=== PATIENT | male | born 1980 | race Caucasian/White ===

== ENCOUNTER 2021-04-06 08:13 | Emergency (ER) | payer MEDICARE, MEDICAID, SELFPAY ==
[2021-03-30 11:10] VITALS: BMI 31.2
[2021-04-06 08:15] VITALS: BP 127/95; PULSE 72; RESP 16; TEMP 36.3; O2SAT 97; BMI 30.2
[2021-04-06 08:28] VITALS: O2SAT 98
--- NOTE | 2021-04-06 08:34 | RAD_ITS ---
STUDY: X-RAY CHEST REASON FOR EXAM: Male, 40 years old. Cough TECHNIQUE: 1 week history of cough. Possible aspiration. COMPARISON: Comparison is made with prior study dated 03/30/2021. FINDINGS: EKG electrodes are seen. The lungs are clear and expanded. There is no demonstrated pleural abnormality. Normal size heart. Normal mediastinum and wilfred. Normal visualized pulmonary arteries. Normal visualized aortic arch and descending thoracic aorta. Normal visualized thoracic spine. Normal visualized ribs, clavicles, and shoulders. Hiatal hernia. RAD/Chest 1 View (Portable) IMPRESSION: The lungs are clear. Hiatal hernia. Electronically Signed: Bob Morocho MD at 9:26 EDT , Service support ,
--- NOTE | 2021-04-06 08:37 | EX.ED.DYSGE1 ---
HPI History of Present Illness Chief Complaint: Cough Informant: parent Onset/Context/Timing Onset: Weeks (1) Context: Gradual Onset Timing: Continuous Quality: Cough Location: Chest Worsened by: Nothing Relieved by: Nothing Narrative Narrative: Patient presents with cough that has been getting worse over the past week. Patient is nonverbal and is a poor historian. Mother states the patient was seen in urgent care last week and was given a prescription for amoxicillin and Zithromax for possible aspiration pneumonia. Mother states patient has been taking the antibiotics as prescribed but has not gotten any better. Mother states patient has been coughing up some yellow sputum. Mother also states patient has been vomiting up some stomach contents. Mother is concerned over possible aspiration. Mother denies any fevers or chills. [facility] Medical History Hemorrhoids History of seizures Incontinence Limb weakness TBI (traumatic brain injury) Home Medications carbamazepine 400 mg PO BID 02/10/14 [History Last Taken Unknown] loratadine [Claritin] 10 mg PO DAILY 02/10/14 [History Last Taken Unknown] pediatric multivit 22-D3-vit K [Multivitamins Chewable Tablet] 1 ea PO DAILY 02/10/14 [History Last Taken Unknown] albuterol sulfate [Ventolin Hfa (SP)] 1 puff INHALATION Q4H PRN PRN 09/13/17 [History Last Taken Unknown] calcium carbonate 300 mg PO DAILY 09/13/17 [History Last Taken Unknown] cholecalciferol (vitamin D3) [Vitamin D] 1,000 unit PO DAILY 09/13/17 [History Last Taken Unknown] magnesium oxide 250 mg PO DAILY 09/13/17 [History Last Taken Unknown] melatonin 10 mg PO DAILY 09/13/17 [History Last Taken Unknown] omeprazole 40 mg PO DAILY 09/13/17 [History Last Taken Unknown] phenobarbital 32.4 mg PO TUTHSA 09/13/17 [History Last Taken Unknown] amoxicillin 875 mg-potassium clavulanate 125 mg tablet 1 tab PO Q12H 10 Days #20 tab 03/30/21 [Rx Last Taken Unknown] azithromycin 250 mg tablet See Rx Instructions PO .COMPLEX #6 tab 03/30/21 [Rx Last Taken Unknown] psyllium husk 0.52 gram capsule 0.52 g PO DAILY 03/30/21 [History Last Taken Unknown] dextromethorphan HBr 30 mg PO QHS PRN PRN #10 cap 04/06/21 [Rx Last Taken Unknown] Allergy/AdvReac Type Severity Reaction Status Date / Time animal dander Allergy unknown Verified 04/06/21 08:17 grass pollen Allergy unknown Verified 04/06/21 08:17 lavender (Lavandula Allergy unknown Verified 04/06/21 08:17 angustifolia) wood smoke Allergy unknown Uncoded 04/06/21 08:17 Family History (Updated 03/30/21 @ 11:22 by Lori Winchester) Grandfather Colon cancer Grandmother Hypertension Diabetes Surgical History History of surgical procedure Social History Smoking Status: Never smoker alcohol intake: never ROS ROS ED Constitutional Constitutional ED: Denies chills or fever(s) Eyes Eyes: Denies blurry vision or change in vision ENT ENT ED: Reports sore throat; Denies rhinorrhea Cardiovascular Cardiovascular: Denies chest pain or palpitations Respiratory/Chest Respiratory/Chest: Reports cough; Denies dyspnea Gastrointestinal Gastrointestinal: Reports nausea and vomiting Genitourinary Genitourinary ED: Denies dysuria or hematuria Integumentary Denies abscess or rash Neurologic Neurologic: Denies headache(s) Allergic/Immunologic Allergic/Immunologic ED: Denies mouth swelling or urticaria EXAM Physical Exam Const Vital Signs: 04/06/21 08:15 04/06/21 08:28 04/06/21 08:45 Temperature 97.4 F L Temperature Source Temporal Pulse Rate 72 80 Respiratory Rate 16 18 Respiratory Effort Normal Non-Labored Respiratory Depth Normal Respiratory Pattern Normal Blood Pressure 127/95 H Blood Pressure Mean 105 Pulse Ox 97 Oxygen Delivery Method Room Air Room Air 04/06/21 11:21 Temperature Temperature Source Pulse Rate 77 Respiratory Rate 14 Respiratory Effort Respiratory Depth Respiratory Pattern Blood Pressure 125/86 H Blood Pressure Mean Pulse Ox 97 Oxygen Delivery Method Positive well nourished and well developed General Appearance ED: well developed HEENT Reports moist mucous membranes Neck supple and no JVD Resp normal respiratory effort Auscultation: diminished lung sounds diffuse Cardio regular rate and regular rhythm GI normal to inspection, nondistended, normoactive bowel sounds and non-tender Palpation: soft Neuro CN's II-XII intact bilaterally and no sensory deficits noted Sensorium / Orientation: alert MDM MDM MDM Narrative Medical decision making narrative: Patient was given a DuoNeb aerosol here. Portable 1 view chest x-ray was obtained. On my interpretation, lung gardner are clear. There is normal cardiac silhouette. Bony thorax is normal. There is a hiatal hernia noted. There is no acute process noted. Radiologist also interpreted the x-ray and agrees. COVID-19 rapid antigen was obtained and was negative. Patient was feeling better on reevaluation. Mother was advised of the findings. Mother was advised that this may still be some irritation from previous aspiration pneumonia. Mother was instructed to follow-up with the patient's primary care physician in 5 to 7 days. Patient was given a prescription for dextromethorphan to take at night to help with the cough. Mother understood and was agreeable with the plan. All questions were answered. Radiography Chest X-Ray - ED: 1 View, Read by ED Physician, Read by Radiologist and Normal Diagnostic Testing: Radiology Impression Chest X-Ray 04/06/21 08:34 IMPRESSION: The lungs are clear. Hiatal hernia. Electronically Signed: Bob Morocho MD at 9:26 EDT , Service support , Discharge Plan Triage Chief Complaint: Cough ED Provider: Rehan Barron Dx/Rx/DC Orders Clinical Impression: Cough Instructions: ED Bronchitis, No Antibiotic (Adult) Prescriptions: New dextromethorphan HBr 15 mg capsule 30 mg PO QHS PRN PRN (Reason: cough) Qty: 10 RF: 0 No Action psyllium husk [Metamucil] 0.52 gram capsule 0.52 g PO DAILY RF: 0 azithromycin 250 mg tablet See Rx Instructions PO .COMPLEX Qty: 6 RF: 0 amoxicillin-pot clavulanate [Augmentin] 875-125 mg tablet 1 tab PO Q12H 10 Days Qty: 20 RF: 0 carbamazepine 200 MG tablet extended release 12 hr 400 mg PO BID RF: 0 loratadine [Allergy Relief (loratadine)] 10 MG tablet 10 mg PO DAILY RF: 0 Chewable Multivit-A,B,D,E,K,Zn 1 EACH tablet,chewable 1 ea PO DAILY RF: 0 phenobarbital 16.2 MG tablet 32.4 mg PO TUTHSA RF: 0 omeprazole 40 MG capsule,delayed release(DR/EC) 40 mg PO DAILY RF: 0 calcium carbonate 600 MG tablet 300 mg PO DAILY RF: 0 albuterol sulfate [Ventolin HFA] 1 INHALER inhaler 1 puff inhalation Q4H PRN PRN (Reason: Wheezing) RF: 0 magnesium oxide 250 MG tablet 250 mg PO DAILY RF: 0 cholecalciferol (vitamin D3) [Vitamin D3] 1,000 UNIT tablet 1,000 unit PO DAILY RF: 0 melatonin 10 MG tablet 10 mg PO DAILY RF: 0 Primary Care Provider: Lino Miller Referrals: Lino Miller MD [Primary Care Provider] - 3-5 Days Disposition Disposition: Home, Self Care Discharge Date/Time: 04/06/21 11:24
[2021-04-06 08:45] VITALS: PULSE 80; RESP 18
[2021-04-06] MEDS: Ipratropium/Albuterol Sulfate 3 ML AMPUL.NEB INHALATION (08:45)
[2021-04-06 11:21] VITALS: BP 125/86; PULSE 77; RESP 14; O2SAT 97
== END 2021-04-06 11:24 | disposition home or self-care (01) ==
PROVIDERS: Emergency Provider Emergency Medicine; PCP Family Medicine
DX: R05 Cough (principal); G40.909 Epilepsy, unspecified, not intractable, without status epilepticus; Z79.899 Other long term (current) drug therapy; Z87.01 Personal history of pneumonia (recurrent); Z87.820 Personal history of traumatic brain injury
CPT/HCPCS: 71045; 87426; 94640; 99283

== ENCOUNTER 2021-05-28 08:11 | Emergency (ER) | payer MEDICARE, MEDICAID, SELFPAY ==
[2021-05-28 08:13] VITALS: BP 133/87; PULSE 98; RESP 26; TEMP 36.6; O2SAT 97; BMI 26.6
[2021-05-28 08:22] VITALS: BP 133/87; PULSE 97; RESP 26; TEMP 36.6; O2SAT 95
--- NOTE | 2021-05-28 08:29 | EDS_ITS ---
HPI History of Present Illness Chief Complaint: Fever Informant: parent Onset/Context/Timing Onset: Yesterday Current Severity: Mild Maximum Severity: Moderate Narrative Narrative: Patient presents via EMS with mother secondary to fever. Patient has history of TBI and seizures; he is nonverbal at baseline. Mother states that she was called to pick him up early from workshop yesterday because he was not able to urinate. They went to urgent care and urine sample was reported negative for infection. Last evening he did not want to eat or drink much. She noted that he had a fever of 100.7 when she put him to bed last night. This morning he had a temperature of 102 rectally. She states he did saturate his bed this morning. He has had mild runny nose and cough which mother has attributed to allergies. She did note that the patient's home nurse is currently in quarantine because her has Covid. The patient was not vaccinated against Covid. [facility] Medical History (Updated 05/28/21 @ 10:[address] Kim Delgadillo MD) Cerebral palsy GERD (gastroesophageal reflux disease) Hemorrhoids History of seizures Incontinence Limb weakness TBI (traumatic brain injury) Home Medications carbamazepine 400 mg PO BID 02/10/14 [History Last Taken Unknown] loratadine [Claritin] 10 mg PO DAILY 02/10/14 [History Last Taken Unknown] pediatric multivit 22-D3-vit K [Multivitamins Chewable Tablet] 1 ea PO DAILY 02/10/14 [History Last Taken Unknown] albuterol sulfate [Ventolin Hfa (SP)] 1 puff INHALATION Q4H PRN PRN 09/13/17 [History Last Taken Unknown] calcium carbonate 300 mg PO DAILY 09/13/17 [History Last Taken Unknown] cholecalciferol (vitamin D3) [Vitamin D] 1,000 unit PO DAILY 09/13/17 [History Last Taken Unknown] magnesium oxide 250 mg PO DAILY 09/13/17 [History Last Taken Unknown] melatonin 10 mg PO QHS 09/13/17 [History Last Taken Unknown] omeprazole 40 mg PO DAILY 09/13/17 [History Last Taken Unknown] phenobarbital 32.4 mg PO TUTHSA 09/13/17 [History Last Taken Unknown] psyllium husk 0.52 gram capsule 0.52 g PO DAILY 03/30/21 [History Last Taken Unknown] dextromethorphan HBr 30 mg PO QHS PRN PRN #10 cap 04/06/21 [Rx Last Taken Unknown] cephalexin 500 mg PO Q6 #40 cap 05/28/21 [Rx Last Taken Unknown] clindamycin HCl 300 mg PO 4X/DAY #80 cap 05/28/21 [Rx Last Taken Unknown] dexamethasone [Decadron] 6 mg PO DAILY #9 tab 05/28/21 [Rx Last Taken Unknown] phenobarbital 16.2 mg PO SUMOWEFR 05/28/21 [History Last Taken Unknown] Allergy/AdvReac Type Severity Reaction Status Date / Time animal dander Allergy unknown Verified 05/28/21 08:12 grass pollen Allergy unknown Verified 05/28/21 08:12 lavender (Lavandula Allergy unknown Verified 05/28/21 08:12 angustifolia) wood smoke Allergy unknown Uncoded 05/28/21 08:12 Family History Grandfather Colon cancer Grandmother Hypertension Diabetes Surgical History History of surgical procedure Social History Smoking Status: Never smoker alcohol intake: never ROS ROS ED ROS Narrative Patient nonverbal at baseline. Per mother patient with fever, mild cough. No vomiting or diarrhea. Review of Systems ROS Unobtainable: due to mental condition EXAM Physical Exam Const Vital Signs: 05/28/21 08:13 05/28/21 08:17 05/28/21 08:22 Temperature 97.8 F 97.8 F Temperature Source Temporal Temporal Pulse Rate 98 97 Respiratory Rate 26 H 26 H Respiratory Effort Normal Non-Labored Respiratory Pattern Tachypnea Blood Pressure 133/87 H 133/87 H Blood Pressure Mean 102 102 Pulse Ox 97 95 Oxygen Delivery Method Room Air Room Air Positive well nourished and well developed General Appearance ED: well developed Eyes EOMs intact bilaterally Neck supple Chest Wall inspection of chest normal and palpation of chest normal Resp normal respiratory effort and clear to auscultation bilaterally Cardio regular rate and regular rhythm GI non-tender Auscultation: hypoactive bowel sounds Palpation: soft Extremity normal to inspection Neuro Sensorium / Orientation: alert Skin no rashes or lesions noted MDM MDM MDM Narrative Medical decision making narrative: Patient is observed on case monitor. Lab work, urinalysis, Covid test, cultures obtained. Portable chest x-ray ordered. Lab Data Attestation: I reviewed the patient's lab results. Labs: Laboratory Results - last 24 hr 05/28/21 05/28/21 05/28/21 08:46 08:46 09:45 WBC 5.5 RBC 4.50 L Hgb 13.5 Hct 40.3 MCV 89.6 MCH 30.0 MCHC 33.5 RDW Std Deviation 40.0 RDW Coeff of Nicol 12.2 Plt Count 135 L MPV 10.8 Immature Gran % (Auto) 0.400 Neut % (Auto) 79.0 H Lymph % (Auto) 10.7 L [place] % (Auto) 9.5 Eos % (Auto) 0.4 Baso % (Auto) 0.0 Absolute Neuts (auto) 4.3 Absolute Lymphs (auto) 0.59 L Nucleated RBC % 0 Differential Comment COMMENT Sodium 139 Potassium 3.8 Chloride 106 Carbon Dioxide 27.0 Anion Gap 6 BUN 14 Creatinine 0.63 L Estim Creat Clear Calc 137.84 Est GFR (MDRD) Af Amer 180 Est GFR (MDRD) Non-Af 149 BUN/Creatinine Ratio 22.3 H Glucose 100 Calcium 9.2 Urine Color Yellow Urine Clarity Clear Urine pH 6.5 Ur Specific [place] 1.010 Urine Protein Negative Urine Glucose (UA) Normal Urine Ketones 5 H Urine Occult Blood Negative Urine Nitrite Negative Urine Bilirubin Negative Urine Urobilinogen Normal Ur Leukocyte Esterase Negative Urine RBC 0 SEEN Urine WBC 0 SEEN Ur Squamous Epith Cells 0 SEEN Urine Bacteria 0 SEEN Urine Mucus 0 SEEN Radiography Chest X-Ray - ED: 1 View, Read by ED Physician and Right Infiltrate Diagnostic Testing: Radiology Impression Chest X-Ray 05/28/21 09:05 IMPRESSION: Patchy right lower lobe infiltrate with blunting of the right cardiac phrenic angle. Electronically Signed: Bob Morocho MD at 9:43 EDT , Service support , Treatment and Re-Evaluation Comments:: Test results reviewed with mother at bedside. Chest x-ray does reveal a right lower lobe infiltrate per my interpretation as well as radiologist. Covid test is positive. Blood work and urinalysis otherwise unremarkable. Patient's O2 sat is 96% on room air. He will be treated with dexamethasone. Because the patient has frequent aspiration pneumonia and the infiltrate noted on his x-ray appears to be more consistent with this as opposed to the typical Covid pneumonia pattern he will be treated with antibiotics as well. Mother does have pulse ox at home and will check his oxygen levels frequently. Discharge Plan Triage Chief Complaint: Fever ED Provider: Kim Delgadillo Dx/Rx/DC Orders Clinical Impression: Aspiration pneumonia, COVID-19 Instructions: Coronavirus Disease 2019 (COVID-19): Overview, Coronavirus Disease 2019 (COVID-19): Caring for Yourself or Others, ED Pneumonia (Adult) Prescriptions: New dexamethasone [Decadron] 6 mg tablet 6 mg PO DAILY Qty: 9 RF: 0 clindamycin HCl 150 mg capsule 300 mg PO 4X/DAY Qty: 80 RF: 0 cephalexin 500 mg capsule 500 mg PO Q6 Qty: 40 RF: 0 No Action psyllium husk [Metamucil] 0.52 gram capsule 0.52 g PO DAILY RF: 0 carbamazepine 200 MG tablet extended release 12 hr 400 mg PO BID RF: 0 loratadine [Allergy Relief (loratadine)] 10 MG tablet 10 mg PO DAILY RF: 0 Chewable Multivit-A,B,D,E,K,Zn 1 EACH tablet,chewable 1 ea PO DAILY RF: 0 phenobarbital 16.2 MG tablet 32.4 mg PO TUTHSA RF: 0 omeprazole 40 MG capsule,delayed release(DR/EC) 40 mg PO DAILY RF: 0 calcium carbonate 600 MG tablet 300 mg PO DAILY RF: 0 albuterol sulfate [Ventolin HFA] 1 INHALER inhaler 1 puff inhalation Q4H PRN PRN (Reason: Wheezing) RF: 0 magnesium oxide 250 MG tablet 250 mg PO DAILY RF: 0 cholecalciferol (vitamin D3) [Vitamin D3] 1,000 UNIT tablet 1,000 unit PO DAILY RF: 0 melatonin 10 MG tablet 10 mg PO QHS RF: 0 dextromethorphan HBr 15 mg capsule 30 mg PO QHS PRN PRN (Reason: cough) Qty: 10 RF: 0 phenobarbital 32.4 mg tablet 16.2 mg PO SUMOWEFR RF: 0 Primary Care Provider: Lino Miller Referrals: Lino Miller MD [Primary Care Provider] - 1-2 Weeks Disposition Disposition: Home, Self Care
--- NOTE | 2021-05-28 09:05 | RAD_ITS ---
STUDY: X-RAY CHEST REASON FOR EXAM: Male, 41 years old. Fever TECHNIQUE: Single AP portable view of the chest. COMPARISON: Comparison is made with prior study dated 04/06/2021. FINDINGS: EKG electrodes are seen. Patchy infiltrate at the right lung base with blunting of the left costophrenic angle. Normal size heart. Normal mediastinum and wilfred. Normal visualized pulmonary arteries. Normal visualized aortic arch and descending thoracic aorta. Normal visualized thoracic spine. Normal visualized ribs, clavicles, and shoulders. Hiatal hernia. RAD/Chest 1 View (Portable) IMPRESSION: Patchy right lower lobe infiltrate with blunting of the right cardiac phrenic angle. Electronically Signed: Bob Morocho MD at 9:43 EDT , Service support ,
[2021-05-28 09:07] LABS: Absolute Lymphocyte Count 0.59 X10^3/uL (0.83-4.51); Absolute Neutrophil Count 4.3 X10^3/uL (2.0-7.7); Eosinophil# 0.02 X10^3/uL; Eosinophils% 0.4 % (0-5); Hematocrit 40.3 % (40-54); Hemoglobin 13.5 g/dL (13.0-16.5); Lymphocyte # 0.59 X10^3/ul (0.83-4.51); Lymphocyte % 10.7 % (19-41); Mean Corp Hgb Conc 33.5 g/dL (32-36); Mean Corpuscular Volume 89.6 fL (80-94); Mean Platelet Vol. 10.8 fl (6.2-12.0); Monocyte# 0.52 X10^3/uL; Monocyte% 9.5 % (0-10); NRBC Flagged by Analyzer 0 % (0-5); Neutrophil # 4.34 X10^3/uL (2.7-7.7); POSITIVE DIFFERENTIAL YES; Platelet Count 135 K/mm3 (150-450); RBC Distribution Width CV 12.2 % (11.6-14.6); White Blood Count 5.5 K/mm3 (4.4-11.0)
[2021-05-28 09:08] LABS: Differential Indicated SCAN CRITERIA MET
[2021-05-28 09:18] LABS: Anion Gap 6 (5-15); BUN 14 mg/dL (7-18); BUN/Creat Ratio 22.3 RATIO (10-20); Calcium,Total 9.2 mg/dL (8.5-10.1); Chloride 106 mmol/L (98-107); Creatinine, Serum 0.63 mg/dL (0.70-1.30); EST Glomerular Filtration Rate 149 mL/min (>60); Est Glom Filt Rate - Afr Amer 180 mL/min (>60); Estimated Creatinine Clearance 137.84 ml/min; Glucose 100 mg/dL (74-106); Potassium 3.8 mmol/L (3.5-5.1); Sodium Level 139 mmol/L (136-145)
[2021-05-28 09:51] LABS: Bacteria 0 SEEN /hpf (None Seen); Mucous, Urine 0 SEEN /hpf (<or=2+); Red Blood Cells-Urine 0 SEEN /hpf (0-5); Squamous Epithelial Cells - UA 0 SEEN /hpf (0-5); White Blood Cells 0 SEEN /hpf (0-5)
[2021-05-28 09:56] LABS: Color, Urine Yellow (Yellow); Glucose, Dipstick Normal (Normal); Ketone-Dipstick 5 mg/dl (Negative); Leukocyte Esterase-Dipstick Negative /ul (Negative); Nitrite-Dipstick Negative (Negative); Occult Blood-Urine Negative /ul (Negative); Protein-Dipstick Negative (Negative); Urine Bilirubin Dipstick Negative (Negative); Urine Clarity Clear (Clear); Urine Urobilinogen Normal (Normal); Urine pH 6.5 (5.0 - 8.0)
[2021-05-28 10:24] VITALS: BP 118/76; PULSE 88; RESP 23; TEMP 37.5; O2SAT 94
[2021-05-28] MEDS: dexAMETHasone 4 MG Tablet 6 MG PO (10:37)
[2021-05-28] MEDS: Cephalexin 250 MG Capsule 500 MG PO (10:37)
[2021-05-28] MEDS: Clindamycin HCl 150 MG Capsule 300 MG PO (10:37)
[2021-05-28 10:45] VITALS: BP 114/78; PULSE 92; RESP 24; TEMP 38; O2SAT 95
[2021-05-28 11:02] VITALS: BP 119/79; PULSE 88; RESP 23; O2SAT 95
== END 2021-05-28 11:25 | disposition home or self-care (01) ==
PROVIDERS: Emergency Provider Emergency Medicine; PCP Family Medicine
DX: U07.1 COVID-19 (principal); J69.0 Pneumonitis due to inhalation of food and vomit; G80.9 Cerebral palsy, unspecified; K21.9 Gastro-esophageal reflux disease without esophagitis; Z79.899 Other long term (current) drug therapy; Z87.820 Personal history of traumatic brain injury
CPT/HCPCS: 36415; 71045; 80048; 81001; 85025; 87040; 87086; 87426; 99285; A4216

== ENCOUNTER 2021-06-03 07:37 | Emergency (ER) | payer MEDICARE, MEDICAID, SELFPAY ==
[2021-06-03 07:40] VITALS: BP 112/75; PULSE 104; RESP 16; TEMP 37.2; O2SAT 94; BMI 31.8
--- NOTE | 2021-06-03 08:17 | EDS_ITS ---
HPI History of Present Illness Chief Complaint: Fever Informant: parent Limited: other Onset/Context/Timing Onset: Days Context: Gradual Onset Timing: Continuous Current Severity: Mild Maximum Severity: Mild Narrative Narrative: 41-year-old male coming by his mom. Patient has a history of cereb ral palsy, seizure disorder mild asthma. He tested positive for Covid on 917. Both his parents are Covid positive. Patient has not been vaccinated. Basically has had fevers at home. No vomiting or diarrhea. Cough with clear sputum. Prior similar symptoms: Yes Recent Illness/Hospitalization: No PFSH PFS Medical History Cerebral palsy GERD (gastroesophageal reflux disease) Hemorrhoids History of seizures Incontinence Limb weakness TBI (traumatic brain injury) Home Medications carbamazepine 400 mg PO BID 02/10/14 [History Last Taken Unknown] loratadine [Claritin] 10 mg PO DAILY 02/10/14 [History Last Taken Unknown] pediatric multivit 22-D3-vit K [Multivitamins Chewable Tablet] 1 ea PO DAILY 02/10/14 [History Last Taken Unknown] albuterol sulfate [Ventolin Hfa (SP)] 1 puff INHALATION Q4H PRN PRN 09/13/17 [History Last Taken Unknown] calcium carbonate 300 mg PO DAILY 09/13/17 [History Last Taken Unknown] cholecalciferol (vitamin D3) [Vitamin D] 1,000 unit PO DAILY 09/13/17 [History Last Taken Unknown] magnesium oxide 250 mg PO DAILY 09/13/17 [History Last Taken Unknown] melatonin 10 mg PO QHS 09/13/17 [History Last Taken Unknown] omeprazole 40 mg PO DAILY 09/13/17 [History Last Taken Unknown] phenobarbital 32.4 mg PO TUTHSA 09/13/17 [History Last Taken Unknown] psyllium husk 0.52 gram capsule 0.52 g PO DAILY 03/30/21 [History Last Taken Unknown] dextromethorphan HBr 30 mg PO QHS PRN PRN #10 cap 04/06/21 [Rx Last Taken Unknown] cephalexin 500 mg PO Q6 #40 cap 05/28/21 [Rx Last Taken Unknown] clindamycin HCl 300 mg PO 4X/DAY #80 cap 05/28/21 [Rx Last Taken Unknown] dexamethasone [Decadron] 6 mg PO DAILY #9 tab 05/28/21 [Rx Last Taken Unknown] phenobarbital 16.2 mg PO SUMOWEFR 05/28/21 [History Last Taken Unknown] Allergy/AdvReac Type Severity Reaction Status Date / Time animal dander Allergy unknown Verified 06/03/21 07:43 grass pollen Allergy unknown Verified 06/03/21 07:43 lavender (Lavandula Allergy unknown Verified 06/03/21 07:43 angustifolia) wood smoke Allergy unknown Uncoded 06/03/21 07:43 Family History Grandfather Colon cancer Grandmother Hypertension Diabetes Surgical History History of surgical procedure Social History Smoking Status: Never smoker alcohol intake: never ROS ROS ED ROS Narrative Cough. Fever. Review of Systems ROS Unobtainable: Denies due to encephalopathy Constitutional Constitutional ED: Reports fever(s) Eyes Eyes: Denies change in vision ENT ENT ED: Denies ear pain or sore throat Cardiovascular Cardiovascular: Denies chest pain Respiratory/Chest Respiratory/Chest: Reports cough and sputum Gastrointestinal Gastrointestinal: Denies abdominal pain, diarrhea, nausea or vomiting Genitourinary Genitourinary ED: Denies dysuria Musculoskeletal Musculoskeletal: Denies myalgias Integumentary Denies rash Neurologic Neurologic: Denies headache(s) Psychiatric Psychiatric: Denies depression Endocrine Endocrinology: Denies polyuria Allergic/Immunologic Allergic/Immunologic ED: Denies urticaria EXAM Physical Exam Narrative Exam Narrative: Middle-age male no acute distress. Vital signs stable. Pulse ox 94% on room air no signs hypoxia. His initial temperature is 98.9. Nurse to get 100.7 axillary. HEENT exam mild dry mucous memories. Neck nontender no JVD no lymphadenopathy. Lungs clear to auscultation bilaterally. Heart regular rhythm rate about 100 no murmur. Abdomen soft nontender normal bowel sounds no peritoneal signs. Patient moving all 4 extremities. He does have braces on both ankles. Calves are nontender without edema or cords. Neurologically is awake. Is alert. He is moving all 4 extremities. Const Vital Signs: 06/03/21 07:40 06/03/21 08:14 06/03/21 08:57 Temperature 98.9 F 100.4 F H Temperature Source Axillary Axillary Pulse Rate 104 H 100 Respiratory Rate 16 22 H Respiratory Effort Normal Non-Labored Respiratory Pattern Normal Blood Pressure 112/75 112/84 H Blood Pressure Mean 87 93 Pulse Ox 94 96 Oxygen Delivery Method Room Air Room Air Positive well nourished and well developed; Negative for obese, cachectic, contractures or unkempt General Appearance ED: well developed and NAD; Negative for unkempt, cachectic, contractures, cyanotic or diaphoretic Nutritional Appearance: Negative for cachectic or obese HEENT Reports dry mucous membranes Negative for trauma or tenderness Mouth ED: Yes dry mucous membranes Mouth: dry mucous membranes Eyes PERRL and EOMs intact bilaterally Neck supple and no JVD General: Negative for tenderness Chest Wall inspection of chest normal and palpation of chest normal Resp normal respiratory effort and clear to auscultation bilaterally Cardio regular rate, regular rhythm, S1 normal heart sound, S2 normal heart sound and no murmurs Rate: tachycardic GI normal to inspection, nondistended, normoactive bowel sounds, non-tender and non-distended Palpation: soft Back/Spine no CVA tenderness General Back: Negative for CVA tenderness Extremity normal to inspection Extremity Narrative: Braces but lower extremities. General Extremety ED: Negative for edema or tenderness General Extremity: Negative for edema Neuro Neuro Narrative: Patient not speaking. Sensorium / Orientation: alert Psych mental status grossly normal Appearance: Negative for unkempt Skin no rashes or lesions noted and no wounds MDM MDM MDM Narrative Medical decision making narrative: Middle-age male with Covid unvaccinated. Will be treated with IV fluids. Labs and chest x-ray pending. Repeat exam patient doing well at 10:30 AM. Blood pressures running around 95/5 0 and that is his baseline. He does not look septic or toxic. He and his mom a card with him being discharged home. He is currently on antibiotics clindamycin and she believes Keflex. Lab Data Attestation: I reviewed the patient's lab results. Lab results narrative: CBC shows a white count of 4. Hemoglobin 13.5. Platelets of 144,000. Electrolytes show a gap of 7 creatinine 0.6. Lactic acid 0.7. Liver enzymes are elevated AST 378, ALT elevated 709. Alkaline phosphatase 198. Total bilirubin is normal. Labs: Laboratory Results - last 24 hr 09/23/21 09/23/21 09/23/21 08:36 08:36 08:36 WBC 4.0 L RBC 4.62 Hgb 13.5 Hct 40.7 MCV 88.1 MCH 29.2 MCHC 33.2 RDW Std Deviation 39.7 RDW Coeff of Nicol 12.2 Plt Count 144 L MPV 10.8 Immature Gran % (Auto) 0.500 Neut % (Auto) 81.7 H Lymph % (Auto) 9.8 L [place] % (Auto) 8.0 Eos % (Auto) 0.0 Baso % (Auto) 0.0 Absolute Neuts (auto) 3.3 Absolute Lymphs (auto) 0.39 L Nucleated RBC % 0 [address] Review January foll Sodium 137 Potassium 3.8 Chloride 104 Carbon Dioxide 26.0 Anion Gap 7 BUN 16 Creatinine 0.63 L Estim Creat Clear Calc 108.02 Est GFR (MDRD) Af Amer 179 Est GFR (MDRD) Non-Af 148 BUN/Creatinine Ratio 25.3 H Glucose 116 H Lactic Acid 0.7 Calcium 9.2 Total Bilirubin 0.50 AST 378 H ALT 709 H Alkaline Phosphatase 198 H Total Protein 7.5 Albumin 3.1 L Globulin 4.4 H Albumin/Globulin Ratio 0.7 L Radiography Chest X-Ray - ED: 1 View, Read by ED Physician, Heart, Lungs, Mediastinum, Bony Structures and Right Infiltrate Diagnostic Testing: Chest x-ray portable 1 view shows a right lower lobe infiltrate as seen on the prior chest x-ray 6 days ago. Discharge Plan Triage Chief Complaint: Fever ED Provider: Dejuan Hall Dx/Rx/DC Orders Clinical Impression: Aspiration pneumonia, COVID-19 Instructions: Symptoms of COVID-19 Infection Prescriptions: No Action psyllium husk [Metamucil] 0.52 gram capsule 0.52 g PO DAILY RF: 0 carbamazepine 200 MG tablet extended release 12 hr 400 mg PO BID RF: 0 loratadine [Allergy Relief (loratadine)] 10 MG tablet 10 mg PO DAILY RF: 0 Chewable Multivit-A,B,D,E,K,Zn 1 EACH tablet,chewable 1 ea PO DAILY RF: 0 phenobarbital 16.2 MG tablet 32.4 mg PO TUTHSA RF: 0 omeprazole 40 MG capsule,delayed release(DR/EC) 40 mg PO DAILY RF: 0 calcium carbonate 600 MG tablet 300 mg PO DAILY RF: 0 albuterol sulfate [Ventolin HFA] 1 INHALER inhaler 1 puff inhalation Q4H PRN PRN (Reason: Wheezing) RF: 0 magnesium oxide 250 MG tablet 250 mg PO DAILY RF: 0 cholecalciferol (vitamin D3) [Vitamin D3] 1,000 UNIT tablet 1,000 unit PO DAILY RF: 0 melatonin 10 MG tablet 10 mg PO QHS RF: 0 dextromethorphan HBr 15 mg capsule 30 mg PO QHS PRN PRN (Reason: cough) Qty: 10 RF: 0 phenobarbital 32.4 mg tablet 16.2 mg PO SUMOWEFR RF: 0 dexamethasone [Decadron] 6 mg tablet 6 mg PO DAILY Qty: 9 RF: 0 clindamycin HCl 150 mg capsule 300 mg PO 4X/DAY Qty: 80 RF: 0 cephalexin 500 mg capsule 500 mg PO Q6 Qty: 40 RF: 0 Primary Care Provider: Lino Miller Referrals: Lino Miller MD [Primary Care Provider] - 3-5 Days Activity Restrictions/Additional Instructions: Plenty of fluids and rest. Alternate Tylenol and Motrin for fever. Finish his antibiotics. Follow-up with his doctor early next week to ensure he is improving. Return emergency department if worse. Disposition Disposition: Home, Self Care
[2021-06-03] MEDS: 0.9% Normal Saline 1,000 ML 999 ML IV (08:42)
[2021-06-03] MEDS: Acetaminophen 500 MG Tablet 1000 MG PO (08:43)
[2021-06-03 08:57] VITALS: BP 112/84; PULSE 100; RESP 22; TEMP 38; O2SAT 96
[2021-06-03 08:57] LABS: Absolute Lymphocyte Count 0.39 X10^3/uL (0.83-4.51); Absolute Neutrophil Count 3.3 X10^3/uL (2.0-7.7); Hematocrit 40.7 % (40-54); Hemoglobin 13.5 g/dL (13.0-16.5); Lymphocyte # 0.39 X10^3/ul (0.83-4.51); Lymphocyte % 9.8 % (19-41); Mean Corp Hgb Conc 33.2 g/dL (32-36); Mean Corpuscular Hgb 29.2 pg (27.0-32.0); Mean Corpuscular Volume 88.1 fL (80-94); Mean Platelet Vol. 10.8 fl (6.2-12.0); Monocyte# 0.32 X10^3/uL; NRBC Flagged by Analyzer 0 % (0-5); Neutrophil # 3.27 X10^3/uL (2.7-7.7); Neutrophil % 81.7 % (47-70); POSITIVE DIFFERENTIAL YES; Platelet Count 144 K/mm3 (150-450); RBC Distribution Width CV 12.2 % (11.6-14.6); RBC Distribution Width SD 39.7 fl (35.1-43.9); Red Blood Count 4.62 M/mm3 (4.6-6.2)
[2021-06-03 09:02] LABS: Differential Indicated SCAN CRITERIA MET
[2021-06-03 09:13] LABS: ALB/GLOB Ratio 0.7 RATIO (0.9-2.4); AST(SGOT) 378 U/L (15-37); Alanine Aminotransfer ALT/SGPT 709 U/L (16-61); Albumin, Serum 3.1 g/dL (3.2-5.0); Alkaline Phosphatase 198 U/L (45-117); Anion Gap 7 (5-15); BUN 16 mg/dL (7-18); BUN/Creat Ratio 25.3 RATIO (10-20); Calcium,Total 9.2 mg/dL (8.5-10.1); Chloride 104 mmol/L (98-107); Creatinine, Serum 0.63 mg/dL (0.70-1.30); EST Glomerular Filtration Rate 148 mL/min (>60); Est Glom Filt Rate - Afr Amer 179 mL/min (>60); Estimated Creatinine Clearance 108.02 ml/min; Globulin 4.4 g/dL (2.2-4.2); Glucose 116 mg/dL (74-106); Potassium 3.8 mmol/L (3.5-5.1); Protein, Total 7.5 g/dL (6.4-8.2); Sodium Level 137 mmol/L (136-145)
[2021-06-03 09:20] LABS: Lactic Acid 0.7 mmol/L (0.4-1.9)
--- NOTE | 2021-06-03 10:10 | RAD_ITS ---
STUDY: X-RAY CHEST REASON FOR EXAM: Male, 41 years old. covid TECHNIQUE: Single AP portable view of the chest. COMPARISON: Comparison is made with prior study 05/28/2021. FINDINGS: EKG electrodes are seen. Progressive infiltrates are seen in the right hemithorax in the preferential peripheral distribution. This is suggestive of Covid There is no demonstrated pleural abnormality. Normal size heart. Normal mediastinum and wilfred. Normal visualized pulmonary arteries. Normal visualized aortic arch and descending thoracic aorta. Normal visualized thoracic spine. Normal visualized ribs, clavicles, and shoulders. Hiatal hernia RAD/Chest 1 View (Portable) IMPRESSION: Progressive peripheral based infiltrates in the right hemithorax. Electronically Signed: Bob Morocho MD at 10:48 EDT , Service support ,
[2021-06-03 10:29] VITALS: BP 95/41; PULSE 89; RESP 12; O2SAT 94
[2021-06-03 11:27] VITALS: PULSE 88; RESP 14; TEMP 37.7; O2SAT 94
[2021-06-04 13:21] LABS: Pathologist Review Reviewed
== END 2021-06-03 11:30 | disposition home or self-care (01) ==
PROVIDERS: Emergency Provider Emergency Medicine; PCP Family Medicine
DX: U07.1 COVID-19 (principal); J69.0 Pneumonitis due to inhalation of food and vomit; G80.9 Cerebral palsy, unspecified; G40.909 Epilepsy, unspecified, not intractable, without status epilepticus; K21.9 Gastro-esophageal reflux disease without esophagitis; Z79.899 Other long term (current) drug therapy
CPT/HCPCS: 71045; 80053; 83605; 85025; 87040; 96360; 96361; 99285; J7030; A4216

== ENCOUNTER 2021-06-23 12:53 | Emergency (ER) | payer MEDICARE, MEDICAID, SELFPAY ==
[2021-06-23 12:58] VITALS: BP 132/89; PULSE 81; RESP 14; TEMP 36.6; O2SAT 95; BMI 28.4
[2021-06-23 13:03] VITALS: BP 115/92; PULSE 85; RESP 18; O2SAT 96
--- NOTE | 2021-06-23 13:05 | EKG12_ITS ---
Test Reason : CP Blood Pressure : / mmHG Vent. Rate : 084 BPM Atrial Rate : 084 BPM P-R Int : 148 ms QRS Dur : 084 ms QT Int : 344 ms P-R-T Axes : 028 039 022 degrees QTc Int : 406 ms Normal sinus rhythm Normal ECG Confirmed by SHALA CAMARILLO, PAUL ([id number]), material expeditor TATE RICH ([id number]) on 06/29/2021 6:30:46 AM Referred By: Confirmed By:PAUL LAST MD
--- NOTE | 2021-06-23 13:20 | EDS_ITS ---
HPI History of Present Illness Chief Complaint: Chest Pain Informant: patient and parent Onset/Context/Timing Onset: Today Activity at onset: gradual Timing: Intermittent Quality: Positive for Pain Location: Substernal Current Severity: Gone Maximum Severity: Mild Worsened By: Nothing Relieved By: Nothing Narrative Narrative: 41-year-old male who goes to the workshop. He has a history of cerebral palsy. No history of DVT or PE. No recent travel surgery or immobilization. Patient himself is a very limited informant but family is at the bedside. Reportedly had chest pain today while at the workshop. No hemoptysis. No leg pain or swelling. Prior Similar Symptoms: No Recent Illness/Hospitalization: No CVD Risk Factors: Negative for Hypertension, Diabetes, Hypercholesterolemia, Family History 1' </=55 and Smoking PE Risk Factors: Negative for Recent Travel/Surgery, Recent Immobilization, Prior DVT or PE, Cancer and OCP + Smoking + >/=35 TAD Risk Factors: Negative for Marfan's Syndrome and Hypertension [facility] Medical History Asthma Cerebral palsy GERD (gastroesophageal reflux disease) Hemorrhoids History of seizures Incontinence Limb weakness TBI (traumatic brain injury) Home Medications carbamazepine 400 mg PO BID 02/10/14 [History Last Taken Unknown] loratadine [Claritin] 10 mg PO DAILY 02/10/14 [History Last Taken Unknown] pediatric multivit 22-D3-vit K [Multivitamins Chewable Tablet] 1 ea PO DAILY 02/10/14 [History Last Taken Unknown] albuterol sulfate [Ventolin Hfa (SP)] 1 puff INHALATION Q4H PRN PRN 09/13/17 [History Last Taken Unknown] calcium carbonate 300 mg PO DAILY 09/13/17 [History Last Taken Unknown] cholecalciferol (vitamin D3) [Vitamin D] 1,000 unit PO DAILY 09/13/17 [History Last Taken Unknown] magnesium oxide 250 mg PO DAILY 09/13/17 [History Last Taken Unknown] melatonin 10 mg PO QHS 09/13/17 [History Last Taken Unknown] omeprazole 40 mg PO DAILY 09/13/17 [History Last Taken Unknown] phenobarbital 32.4 mg PO TUTHSA 09/13/17 [History Last Taken Unknown] psyllium husk 0.52 gram capsule 0.52 g PO DAILY 03/30/21 [History Last Taken Unknown] phenobarbital 16.2 mg PO SUMOWEFR 05/28/21 [History Last Taken Unknown] Allergy/AdvReac Type Severity Reaction Status Date / Time animal dander Allergy unknown Verified 06/23/21 12:58 grass pollen Allergy unknown Verified 06/23/21 12:58 lavender (Lavandula Allergy unknown Verified 06/23/21 12:58 angustifolia) perfume Allergy PT UNABLE Verified 06/23/21 12:58 TO RESPOND-NEEDS F/U wood smoke Allergy unknown Uncoded 06/23/21 12:58 Family History Grandfather Colon cancer Grandmother Hypertension Diabetes Surgical History History of surgical procedure Social History (Reviewed 06/23/21 @ 13: by Dr. Dejuan Hall MD) Smoking Status: Never smoker alcohol intake: never ROS ROS ED ROS Narrative Chest pain. Review of Systems ROS Unobtainable: Denies due to encephalopathy Constitutional Constitutional ED: Denies fever(s) or subjective Eyes Eyes: Denies none or change in vision ENT ENT ED: Denies ear pain or sore throat Cardiovascular Cardiovascular: Reports as per HPI and chest pain; Denies palpitations or racing heartbeat Respiratory/Chest Respiratory/Chest: Denies cough or dyspnea Gastrointestinal Gastrointestinal: Denies abdominal pain, diarrhea, nausea or vomiting Genitourinary Genitourinary ED: Denies dysuria Musculoskeletal Musculoskeletal: Denies myalgias Integumentary Denies rash Neurologic Neurologic: Denies headache(s) Psychiatric Psychiatric: Denies depression Endocrine Endocrinology: Denies polyuria Hematologic/Lymphatic Hematologic/Lymphatic: Denies easy bruising Allergic/Immunologic Allergic/Immunologic ED: Denies urticaria EXAM Physical Exam Narrative Exam Narrative: Middle-age male no acute distress. Currently nonverbal. Vital signs stable afebrile. Pulse ox 95% on room air no signs hypoxia. HEENT exam unremarkable. Neck nontender no JVD. Lungs clear to auscultation bilaterally. Heart regular rhythm rate about 80. Chest wall completely nontender. No ecchymosis or bruising. No subcu air crepitus. Abdomen soft nontender normal bowel sounds no peritoneal signs. Extremities his calves are nontender both lower extremities. He has braces on his lower extremities. Neurologically he is awake his eyes are open. Currently is not speaking or answering my quest ions. He will follow limited commands. He has weakness in both upper and lower extremities which is chronic. Const Vital Signs: 06/23/21 12:58 06/23/21 13:03 06/23/21 13:27 Temperature 97.9 F Temperature Source Axillary Pulse Rate 81 85 Respiratory Rate 14 18 Blood Pressure 132/89 H 115/92 H Blood Pressure Mean 103 99 Pulse Ox 95 96 92 Oxygen Delivery Method Room Air Room Air Room Air Positive well nourished and well developed; Negative for obese, cachectic, contractures or unkempt General Appearance ED: well developed and NAD; Negative for unkempt, cachectic, contractures or pallor Nutritional Appearance: Negative for cachectic or obese HEENT Reports moist mucous membranes normocephalic and atraumatic; Negative for trauma or tenderness Eyes PERRL and EOMs intact bilaterally Neck no lymphadenopathy and supple Chest Wall inspection of chest normal and palpation of chest normal Chest: Negative for tenderness Resp normal respiratory effort and clear to auscultation bilaterally Effort and Inspection: respiratory distress Auscultation: Negative for rales, rhonchi or wheezes Cardio regular rate, regular rhythm, S1 normal heart sound, S2 normal heart sound and no murmurs GI normal to inspection, nondistended, normoactive bowel sounds, soft to palpation, non-tender, non-distended and no masses Auscultation: Negative for hyperactive bowel sounds Back/Spine no CVA tenderness Extremity normal to inspection Extremity Narrative: Bilateral chronic weakness. Bilateral lower extremity paresis. General Extremety ED: Negative for edema or tenderness General Extremity: Negative for edema Neuro Neuro Narrative: Eyes are open. Follows limited commands. Currently not speaking. Sensorium / Orientation: awake and alert Psych mental status grossly normal Appearance: Negative for unkempt Skin no rashes or lesions noted and no wounds General Skin Exam: Negative for jaundice or pallor Heart Score History: Slightly/Non-Suspicious ECG: Normal Age: </= 45 years Risk Factors: No Risk Factors Troponin: </= Normal Limit Score: 0 MDM MDM MDM Narrative Medical decision making narrative: White male several palsy with reported chest pain not answering questions or speaking at this time. Exam benign. Will un dergo cardiac work-up. He has no DVT or PE history. He has no leg pain or swelling. And he has no risk factors. Repeat exam patient is doing well and 2:50 PM. Exam is benign. He is symptom-free. Abdomen is nontender. Discussed with his mom she knew that he had a large radial hernia. Entire time he takes omeprazole. They are comfortable with him being discharged home. His heart score is 0. Lab Data Attestation: I reviewed the patient's lab results. Lab results narrative: CBC shows an elevated white count of 15.1. Hemoglobin normal at 15. Platelets normal. Electrolytes unremarkable gap of 8. Creatinine normal. Glucose 136. High-sensitivity troponin . Labs: Laboratory Results - last 24 hr 06/23/21 06/23/21 13:25 13:25 WBC 15.1 H RBC 5.13 Hgb 15.3 Hct 45.6 MCV 88.9 MCH 29.8 MCHC 33.6 RDW Std Deviation 42.2 RDW Coeff of Nicol 12.9 Plt Count 293 MPV 11.3 Immature Gran % (Auto) 0.300 Neut % (Auto) 81.8 H Lymph % (Auto) 9.7 L [place] % (Auto) 7.5 Eos % (Auto) 0.4 Baso % (Auto) 0.3 Absolute Neuts (auto) 12.3 H Absolute Lymphs (auto) 1.46 Nucleated RBC % 0 Sodium 139 Potassium 3.5 Chloride 105 Carbon Dioxide 26.0 Anion Gap 8 BUN 23 H Creatinine 0.86 Estim Creat Clear Calc 90.05 Est GFR (MDRD) Af Amer 126 Est GFR (MDRD) Non-Af 104 BUN/Creatinine Ratio 26.9 H Glucose 136 H Calcium 10.1 Troponin I High Sens 6 Radiography Chest X-Ray - ED: 1 View, Read by ED Physician, Heart, Lungs, Mediastinum, Bony Structures and No Acute Disease Diagnostic Testing: Clinical Impression(s) from Imaging Studies Chest X-Ray 06/23/21 13:32 IMPRESSION: Mild degree of increased linear markings at the lung bases slightly worse on the left side. Blunt tip of the left costophrenic angle. Large hiatal hernia. Electronically Signed: Bob Morocho MD at 14:02 EDT , Service support , Single view portable chest x-ray interpreted by myself shows no acute abnormality does have a very large hiatal hernia. Rhythm Strip Rhythm Strip: Sinus Rhythm Rate: 84 Ectopy: None EKG Initial EKG: Attestation: I personally reviewed and interpreted this EKG as follows: Interpretation: Sinus Rhythm and No Acute Injury Pattern Comments: Normal sinus rhythm rate 84 no acute signs of KS or ischemia. Prior EKG tracings: not available for review Discharge Plan Triage Chief Complaint: Chest Pain ED Provider: Dejuan Hall Dx/Rx/DC Orders Clinical Impression: Chest pain Instructions: ED Chest Pain, Uncertain Cause Prescriptions: No Action psyllium husk [Metamucil] 0.52 gram capsule 0.52 g PO DAILY RF: 0 carbamazepine 200 MG tablet extended release 12 hr 400 mg PO BID RF: 0 loratadine [Allergy Relief (loratadine)] 10 MG tablet 10 mg PO DAILY RF: 0 Chewable Multivit-A,B,D,E,K,Zn 1 EACH tablet,chewable 1 ea PO DAILY RF: 0 phenobarbital 16.2 MG tablet 32.4 mg PO TUTHSA RF: 0 omeprazole 40 MG capsule,delayed release(DR/EC) 40 mg PO DAILY RF: 0 calcium carbonate 600 MG tablet 300 mg PO DAILY RF: 0 albuterol sulfate [Ventolin HFA] 1 INHALER inhaler 1 puff inhalation Q4H PRN PRN (Reason: Wheezing) RF: 0 magnesium oxide 250 MG tablet 250 mg PO DAILY RF: 0 cholecalciferol (vitamin D3) [Vitamin D3] 1,000 UNIT tablet 1,000 unit PO DAILY RF: 0 melatonin 10 MG tablet 10 mg PO QHS RF: 0 phenobarbital 32.4 mg tablet 16.2 mg PO SUMOWEFR RF: 0 Primary Care Provider: Lino Miller Referrals: Lino Miller MD [Primary Care Provider] - 3-5 Days if not improving Activity Restrictions/Additional Instructions: Work-up was negative. His EKG and heart enzymes are normal. This may be from reflux or his hiatal hernia. Uses omeprazole at home. Return if feeling worse. Otherwise follow-up with his primary care physician. Disposition Disposition: Home, Self Care
[2021-06-23] MEDS: Aspirin 81 MG TAB.CHEW 324 MG PO (13:26)
[2021-06-23 13:27] VITALS: O2SAT 92
[2021-06-23 13:31] LABS: Absolute Lymphocyte Count 1.46 X10^3/uL (0.83-4.51); Absolute Neutrophil Count 12.3 X10^3/uL (2.0-7.7); Basophil# 0.04 X10^3/uL; Basophil% 0.3 % (0-1); Eosinophil# 0.06 X10^3/uL; Eosinophils% 0.4 % (0-5); Hematocrit 45.6 % (40-54); Hemoglobin 15.3 g/dL (13.0-16.5); Lymphocyte # 1.46 X10^3/ul (0.83-4.51); Lymphocyte % 9.7 % (19-41); Mean Corp Hgb Conc 33.6 g/dL (32-36); Mean Corpuscular Hgb 29.8 pg (27.0-32.0); Mean Corpuscular Volume 88.9 fL (80-94); Mean Platelet Vol. 11.3 fl (6.2-12.0); Monocyte# 1.13 X10^3/uL; Monocyte% 7.5 % (0-10); NRBC Flagged by Analyzer 0 % (0-5); Neutrophil # 12.34 X10^3/uL (2.7-7.7); Neutrophil % 81.8 % (47-70); Platelet Count 293 K/mm3 (150-450); RBC Distribution Width CV 12.9 % (11.6-14.6); RBC Distribution Width SD 42.2 fl (35.1-43.9); Red Blood Count 5.13 M/mm3 (4.6-6.2); White Blood Count 15.1 K/mm3 (4.4-11.0)
--- NOTE | 2021-06-23 13:32 | RAD_ITS ---
STUDY: X-RAY CHEST REASON FOR EXAM: Male, 41 years old. Chest pain TECHNIQUE: Single AP portable view of the chest. COMPARISON: Comparison is made with prior examination dated 06/03/2021. FINDINGS: EKG electrodes are seen. Mild degree of increased markings at the lung bases slightly worse on the left side. These have improved as compared to prior study. Blunting of the left costophrenic angle. Normal size heart. Normal mediastinum and wilfred. Normal visualized pulmonary arteries. Normal visualized aortic arch and descending thoracic aorta. Normal visualized thoracic spine. Normal visualized ribs, clavicles, and shoulders. Large hiatal hernia. RAD/Chest 1 View (Portable) IMPRESSION: Mild degree of increased linear markings at the lung bases slightly worse on the left side. Blunt tip of the left costophrenic angle. Large hiatal hernia. Electronically Signed: Bob Morocho MD at 14:02 EDT , Service support ,
[2021-06-23 13:47] LABS: Anion Gap 8 (5-15); BUN 23 mg/dL (7-18); BUN/Creat Ratio 26.9 RATIO (10-20); Calcium,Total 10.1 mg/dL (8.5-10.1); Chloride 105 mmol/L (98-107); Creatinine, Serum 0.86 mg/dL (0.70-1.30); EST Glomerular Filtration Rate 104 mL/min (>60); Est Glom Filt Rate - Afr Amer 126 mL/min (>60); Estimated Creatinine Clearance 90.05 ml/min; Glucose 136 mg/dL (74-106); Potassium 3.5 mmol/L (3.5-5.1); Sodium Level 139 mmol/L (136-145); Troponin-I HS 6 pg/mL (3.0-78.0)
[2021-06-23 14:58] VITALS: BP 139/112; PULSE 76; RESP 18; O2SAT 97
== END 2021-06-23 15:09 | disposition home or self-care (01) ==
PROVIDERS: Emergency Provider Emergency Medicine; PCP Family Medicine
DX: R07.9 Chest pain, unspecified (principal); G80.9 Cerebral palsy, unspecified; K21.9 Gastro-esophageal reflux disease without esophagitis; Z79.899 Other long term (current) drug therapy; Z87.820 Personal history of traumatic brain injury
CPT/HCPCS: 71045; 80048; 84484; 85025; 93005; 99285; A4216

== ENCOUNTER 2022-03-02 15:59 | Outpatient (RCR) | payer MEDICARE, MEDICAID, SELFPAY ==
--- NOTE | 2022-03-03 16:51 | HP.PTEVAL ---
Patient's Visit Information KIESHA YOST is a 41 year old M referred to Physical Therapy by Dr. Lino Miller MD with a diagnosis of CEREBRAL PALSY SPASTIC DIPLEGIC ,SPASTIC DIPLEGIA. Date of Evaluation: 03/02/22 Physical Therapist: Torres Koroma, PT, Cert MDT, OCS - Visit Plan Frequency: 1 visits Plan: THIS WILL BENEFIT FROM MANUAL WHEELCHAIR DUE TO PATIENT HAS WEAKNESS BUE/LE LEFT > RIGHT SIDE MAX ASSIST WITH TRANSFERS AND BED MOBILITY ,FAIR - SITTING BALANCE ,DIFFICULTY TO WALK SAFELY ONLY MIN DISTANCES FOR TRANSFERS ,INCREASE SPASTICITY OF LEFT UE/LE ,POOR POSTURE . MANUAL W/C WILL SIGNFICANTLY IMPROVE THE PATIENT ABILITY TO ASSIST WITH ADLS. - Subjective This 41 y/o male presents to physical therapy with cerebral palsy. This patient is seen for PT for evaluation for W/C . Patient is needing new w/c to ensure comfort. Patient is dependent dressing,bathing and ADL's'. Patient is none verbal . Patient can assist with eating self. Patient transfers max with transfers with WB . Bed mobility requires assist with supine assist. Patient is w/c bound and able to walk with walker with tennis balls sort distance with assist but currently unable to walk due to hernia ,plan to have abdominal surgery ,thus plan for consult. Patient has poor standing balance. Patient can sit at EOB. Patient has h/o pressure ulcer buttock ,due to lengthy hospital stay at [facility] due to pancreatitis and DVT in/out since JUN 2021 ,and had cholystectomy and had feeding tube return to [facility] Sep 2021. Patient can propel w/c with UE . Patient has one story with stair lift for entrance ,tracking José Miguel lift from bedroom to shower .Patient goes to [facility] for 2 [facility]. patient has has hip adductor lengthening surgery and hamstrings lengthening ,2weeks old had brain hemorrhage at 2weeks old.Patient has hip abductor brace. SOCAIL: LIVES WITH PARENTS - Pain Bilateral Pain Intensity (Out of 10): Unrated Pain Intensity Range: Unrated Comment: abnominal - Objective POSTURE: posterior pelvic tilt rounded shoulders ,head forward. TRANFERS : sit-stand max assist and standing pivot low. BED MOBILITY : supine-sit max assist. W/C MOBLITY: Patient propel with Right UR short distances . NEURO: spasticity left UE/LE ,with elbow flexed ,wrist. SITTING BALANCE: absent. PROM : left UE shoulder flexion 90 degrees ,elbow flexion 50 degrees 105 degrees with spasticity with rigidity ,wrist hand in flexor synergy ,BLE PROM hip /knee flexion WFL ,ankle plantarflexion contracture. AROM: right shoulder flexion 105 degrees, elbow WFL and wrist flexor synergy. MMT: BLE 1/5 ,left UE 1/5 ,right UE at least 3/5 - Rehabilitation Potential Physical Therapy Diagnosis: THIS WILL BENEFIT FROM MANUAL WHEELCHAIR DUE TO PATIENT HAS WEAKNESS BUE/LE LEFT > RIGHT SIDE MAX ASSIST WITH TRANSFERS AND BED MOBILITY ,FAIR - SITTING BALANCE ,DIFFICULTY TO WALK SAFELY ONLY MIN DISTANCES FOR TRANSFERS ,INCREASE SPASTICITY OF LEFT UE/LE ,POOR POSTURE . MANUAL W/C WILL SIGNFICANTLY IMPROVE THE PATIENT ABILITY TO ASSIST WITH ADLS. Rehabilitation Potential: Good - Anticipated Interventions For the Purpose of:: Other Other: CUSTOM MANUAL W/C Thank you for the opportunity to evaluate your patient. For Medicare and Medicare HMO plans, please review the plan of care and approve it. It will need to be FAXED BACK to us at [phone] for Medicare purposes. For Medicare only, by signing this I certify the plan of care. Please let me know if there are questions or concerns regarding this plan of care. Physician Signature: Date:
== END 2022-03-02 19:00 | disposition home or self-care (01) ==
LOC: PT 15:59
PROVIDERS: PCP Family Medicine; Referring Provider Family Medicine; Visit Provider Family Medicine
DX: G80.1 Spastic diplegic cerebral palsy (principal)
CPT/HCPCS: 97110

== ENCOUNTER 2023-10-04 08:25 | Outpatient (RCR) | payer MEDICARE, MEDICAID, SELFPAY ==
--- NOTE | 2023-10-04 09:27 | HP.PTEVAL ---
Patient's Visit Information Visit Information Visit Information: KIESHA YOST is a 43 year old M referred to Physical Therapy by TRAN Salazar with a diagnosis of SPASTIC DIPLEGIC,CEREBRAL PALSY ,GENERALIED IDIOPATHIC EPILEPSY. Date of Evaluation: 10/04/23 Physical Therapist: Torres Koroma PT, Cert MDT, OCS Visit Plan Frequency: 1 visits Plan: This patient with CP will benefit from w/c modification due to postural deficits ,weakness ,non ambulatory ,max assist with transfers ,weakness and prevention of pressure ulcers. Subjective Subjective: This 43 y/o male presents to physical therapy with w/c evaluation. Patient has cerebral palsy with spastic diplegia . Patient is 5'0 with 165 # . Patient is w/c 12 hrs . Patient is non ambulatory . Patient need assist with max assist with transfer. Patient has ceiling transfer to bathroom. Patient has lift with w/c lift to entrance to house. Patient has walk in shower. Patient dependent with self hygiene with bathing dressing . Patient is able to eat. Patient goes to room every 2 hours. Patient needs assist with repositioning but can help. Patient has no pressure ulcers buttock. Patient has no pain. Patient uses AFO with contracture. Patient need changes and modification with w/c. Patient has h/o pancreatitis with multiple abdominal surgeries . Patient attends [facility] 5x/week. SOCIAL: LIVES with family Objective Objective: POSTURE: posterior pelvic tilt ,rounded shoulder head forward TRANSFERS : max assist standing pivot BED MOBILITY: supine-sit max assist SITTING BALNANCE: fair STANDING BALANCE: absent GAIT: NON Ambulatory AROM: RIGHT UE PROM: right shoulder 80 degrees ,elbow /wrist limited by spasticity and contractures BLE PROM: hip flexion 90 degrees ,knee flexion 80 degrees limited by spasticity and contractures MMT: right UE 3/5 ,otherwise BLE/LUE 0/5 Goals Goal 1:: Patient will benefit from w/c modification Rehabilitation Potential Physical Therapy Diagnosis: This patient with CP will benefit from w/c modification due to postural deficits ,weakness ,non ambulatory ,max assist with transfers ,weakness and prevention of pressure ulcers. Rehabilitation Potential: Fair Anticipated Interventions Patient/Client Instruction: Educate patient on: Condition and Plan of Care For the Purpose of:: Other Other: w/c modification Text: Thank you for the opportunity to evaluate your patient. For Medicare and Medicare HMO plans, please review the plan of care and approve it. It will need to be FAXED BACK to us at [phone] for Medicare purposes. For Medicare only, by signing this I certify the plan of care. Please let me know if there are questions or concerns regarding this plan of care. Physician Signature: Date:
== END 2023-10-04 19:00 | disposition home or self-care (01) ==
LOC: PT 08:25
PROVIDERS: PCP Family Medicine; Referring Provider Nurse Practitioner Family; Visit Provider Nurse Practitioner Family
DX: G80.9 Cerebral palsy, unspecified (principal)
CPT/HCPCS: 97162

== ENCOUNTER → 2025-08-22 | Outpatient (CLI) | payer MEDICARE, MEDICAID, SELFPAY ==
[2025-08-22 10:22] LABS: Hematocrit 43.7 % (40-54); Hemoglobin 14.8 g/dL (13.0-16.5); Immature Granulocytes Count 0.010 X10^3/uL (0.0-0.0); Mean Corp Hgb Conc 33.9 g/dL (32-36); Mean Corpuscular Volume 88.6 fL (80-94); Mean Platelet Vol. 12.2 fl (6.2-12.0); NRBC Flagged by Analyzer 0 % (0-5); POSITIVE COUNT YES; Platelet Count 142 K/mm3 (150-450); RBC Distribution Width CV 13.1 % (11.6-14.6); RBC Distribution Width SD 42.9 fl (35.1-43.9); Red Blood Count 4.93 M/mm3 (4.6-6.2); White Blood Count 4.7 K/mm3 (4.4-11.0)
[2025-08-22 10:26] LABS: Ammonia 50.4 umol/L (16-60)
[2025-08-22 10:42] LABS: Carbamazepine (Tegretol) 7.9 ug/mL (4.0-12.0)
[2025-08-22 10:57] LABS: AST(SGOT) 25 U/L (<=37); Alanine Aminotransfer ALT/SGPT 29 U/L (<=46); Albumin, Serum 4.2 g/dL (3.5-5.0); Alkaline Phosphatase 82 U/L (40-129); Anion Gap 9 (5-15); BUN 7 mg/dL (4-19); BUN/Creat Ratio 12.2 RATIO (10-20); Calcium,Total 10.2 mg/dL (7.6-11.0); Carbon Dioxide 25.5 mmol/L (21.0-32.0); Chloride 105 mmol/L (98-108); Globulin 3.0 g/dL (2.2-4.2); Glucose 102 mg/dL (70-99); Magnesium 2.3 mg/dL (1.5-2.2); Potassium 3.9 mmol/L (3.3-5.1); Vitamin B12 631 pg/mL (180-914)
[2025-08-22 10:58] LABS: Differential Indicated SCAN CRITERIA MET
[2025-08-25 13:08] LABS: Vitamin D 1,25-Dihydroxy 58.0 pg/mL (24.8-81.5)
[2025-08-27 13:08] LABS: Folate, Hemolysate Test 458.0 ng/mL (Not Estab.); Folate, RBC (Hct) Test 45.3 % (37.5-51.0); Folates, RBC Test 1011 ng/mL (>498); VITAMIN B6 11.3 ug/L (3.4-65.2); Vitamin B1, Thiamine 162.5 nmol/L (66.5-200.0)
== END | disposition home or self-care (01) ==
LOC: MTLAB 08:56
PROVIDERS: PCP Family Medicine; Referring Provider Psychiatry & Neurology Neurology; Visit Provider Psychiatry & Neurology Neurology
DX: G40.909 Epilepsy, unspecified, not intractable, without status epilepticus (principal); R00.0 Tachycardia, unspecified
CPT/HCPCS: 36415; 80053; 80156; 80184; 82140; 82607; 82652; 82747; 83735; 84207; 84425; 84443; 85014; 85025

== ENCOUNTER → 2025-09-01 | Outpatient (CLI) | payer MEDICARE, MEDICAID, SELFPAY | END | disposition home or self-care (01) | PROVIDERS: PCP Family Medicine; Referring Provider Psychiatry & Neurology Neurology; Visit Provider Psychiatry & Neurology Neurology | DX: G40.909 Epilepsy, unspecified, not intractable, without status epilepticus (principal); G80.9 Cerebral palsy, unspecified | CPT/HCPCS: 95819 ==